=== PATIENT | female | born 1940 | race Caucasian/White ===

== ENCOUNTER → 2024-03-12 06:57 | Outpatient (REF) | payer MEDICARE, SELFPAY | LOC: RCS 06:57 | PROVIDERS: ATTENDING PHYSICIAN Internal Medicine Cardiovascular Disease; FAMILY PHYSICIAN Internal Medicine | DX: R07.9 Chest pain, unspecified (principal) | CPT/HCPCS: 78452; 93017; A9500; J2785 ==